=== PATIENT | female | born 1955 | race Caucasian/White ===

== ENCOUNTER → 2021-03-08 | Outpatient (CLI) | payer OTHER ==
[~2021-03-08] MED LIST: AMABELZ 0.5 MG1 EACH PO; ASPIRIN 81M81 MG/TA2 PO; B COMPLEX #11 TAB PO; CLARITIN 1010 MG/TAB PO; MAXZIDE-25MG TA1 TAB PO; OMEGA-3 1000 MG1 CAP PO; VITAMIN D 400400 IU PO
== END ==
LOC: MC.RAD 10:07
DX: Z12.31 Encounter for screening mammogram for malignant neoplasm of breast (principal)

== ENCOUNTER → 2022-03-14 | Outpatient (CLI) | payer OTHER | LOC: MC.RAD 08:58 | DX: Z12.31 Encounter for screening mammogram for malignant neoplasm of breast (principal) ==